=== PATIENT | male | born 2000 | race Caucasian/White ===

== ENCOUNTER 2019-08-12 01:23 | Emergency (ER) | payer SELFPAY ==
[2019-08-12 01:36] VITALS: BP 143/88; PULSE 81; TEMP 98.6; BMI 36.5
[2019-08-12] MEDS ORDERED: DEXAMETHASONE 4 MG TABLET (FP) PO ONE (01:45)
--- NOTE | 2019-08-12 01:47 | PDOC ---
History of Present Illness - General Chief Complaint: Respiratory Stated Complaint: RESPIRATORY PROBLEM Time Seen by Provider: 08/12/19 01:40 History Source: Patient Exam Limitations: No Limitations - History of Present Illness Initial Comments: Gunner is a 19 yo M w no sig pmh who presents to the [facility] after he experienced an episode which he describes as his throat closing up while he was in the shower. The patient was well the entire day until he went into the shower at 1 am. He describes a very warm shower and about 1 minute into the shower he felt as if his throat closed up, he could not breath, could not inhale and nothing could come in or out of his throat or lungs. The episode self resolved after 1 minute. The patient ran out of his shower and went next door to his [place] room who said he should come to the ER to be evaluated and make sure everything is okay. Here in the ER the patient is asymptomatic and has no complaints just wants to know what happened. Denies taking any meds including RAFAEL/ARBs. Only medication he occasionally takes is ibuprofen. No personal or family history of tongue/mouth/throat swelling. Denies recent fevers, chills, infections. Denies SOB, chest pain, headache, blurry vision, neck pain. Denies tongue/lip/throat swelling. PCP: None PSH: None reported Allergies: NKA, NKDA Social Hx: Recreational alcohol drinker. Denies cigarettes or other substance abuse. Past History - Medical History Allergies/Adverse Reactions: Allergies Allergy/AdvReac Type Severity Reaction Status Date / Time No Known Allergies Allergy Unverified 08/12/19 01:36 COPD: No - Psycho-Social/Smoking History Smoking History: Never smoked Have you smoked in the past 12 months: No Information on smoking cessation initiated: No - Substance Abuse Hx (Audit-C & DAST Scrn) How often the patient has a drink containing alcohol: Never Score: In Men: 4 or > Positive; In Women: 3 or > Positive: 0 Screen Result (Pos requires Nsg. Audit-10AR): Negative In the last yr the pt used illegal drug/Rx for NonMed reason: No Score: Yes response is considered Positive: 0 Screen Result (Positive result requires Nsg. DAST-10): Negative Review of Systems - Review of Systems Able to Perform ROS?: Yes Comments:: CONSTITUTIONAL: Absent: fever, no chills, no fatigue HEENT: Absent: rhinorrhea, nasal congestion, throat pain, throat swelling, difficulty swallowing, mouth swelling, ear pain, eye pain, visual Changes CARDIOVASCULAR: Absent: chest pain, no palpitations RESPIRATORY: Absent: cough, no SOB GI: Absent: abdominal pain, no nausea, no vomiting, no constipation, no diarrhea GENITOURINARY: Absent: dysuria, no frequency, no hematuria MUSKULOSKELETAL: Absent: back pain, no arthralgia, no myalgia SKIN: Absent: rash NEURO: Absent: headache *Physical Exam - Vital Signs Last Vital Signs Temp Pulse Resp BP Pulse Ox 98.6 F 81 16 143/88 99 08/12/19 01:34 08/12/19 01:08/12/19 01:08/12/19 01:08/12/19 01:34 - Physical Exam GENERAL: Well developed, well nourished. Awake and alert. No acute distress. HEENT: There is no oropharyngeal swelling. Normocephalic, atraumatic. PERRLA, EOMI. No conjunctival pallor. Sclera are non-icteric. Moist mucous membranes. Oropharynx is clear. NECK: Supple. Full ROM. CARDIOVASCULAR: Regular rate and rhythm. No murmurs, rubs, or gallops. Distal pulses are 2+ and symmetric. PULMONARY: No evidence of respiratory distress. Lungs clear to auscultation bilaterally. No wheezing, rales or rhonchi. ABDOMINAL: Soft. Non-tender. Non-distended. No rebound or guarding. No organomegaly. Normoactive bowel sounds. MUSCULOSKELETAL Normal range of motion at all joints. No bony deformities or tenderness. No CVA tenderness. EXTREMITIES: No cyanosis. No clubbing. No edema. No calf tenderness. SKIN: Warm and dry. Normal capillary refill. No rashes. No jaundice. NEUROLOGICAL: Alert, awake, appropriate. Cranial nerves 2-12 intact. No deficits to light touch in face, upper extremities and lower extremities. No motor deficits in the in face, upper extremities and lower extremities. Normal speech. Gait is normal without ataxia. PSYCHIATRIC: Cooperative. Good eye contact. Appropriate mood and affect. Medical Decision Making - Medical Decision Making Gunner is a 19 yo M w no sig pmh who presents to the [facility] after he experienced an episode which he describes as his throat closing up while he was in the shower. The patient was well the entire day until he went into the shower at 1 am. He describes a very warm shower and about 1 minute into the shower he felt as if his throat closed up, he could not breath, could not inhale and nothing could come in or out of his throat or lungs. The episode self resolved after 1 minute. The patient ran out of his shower and went next door to his [place] room who said he should come to the ER to be evaluated and make sure everything is okay. Here in the ER the patient is asymptomatic and has no complaints just wants to know what happened. Denies taking any meds including RAFAEL/ARBs. Only medication he occasionally takes is ibuprofen. No personal or family history of tongue/mouth/throat swelling. Denies recent fevers, chills, infections. Denies SOB, chest pain, headache, blurry vision, neck pain. Denies tongue/lip/throat swelling. Vital Signs Temp Pulse Resp BP Pulse Ox 98.6 F 81 16 143/88 99 08/12/19 01:34 08/12/19 01:34 08/12/19 01:34 08/12/19 01:34 08/12/19 01:34 DDx IBNLT: uvulitis, laryngospasm, allergic reaction Plan: Dexamethasone, DC with PCP referall MDM: Patient appears great in the ER, has no oropharyngeal swelling, has been asymptomatic for the past hour. I suspect this might have been an episode of laryngospasm. The patient appears clinically sober, is A&O x4, and appears to be capable and have capacity to make reasonable decisions. The patient states they are currently in the emergency department, knows who the president is, states the correct time, correct day, and correct month. The patient is ambulatory in ER and has walked around the nursing station multiple times with a straight gait, and is not ataxic. Tolerating PO well, ate a sandwich and drank juice. Denies having any SI or HI. Patient states will not be driving home. I discussed the physical exam findings, ancillary test results and final diagnoses with the patient. I answered all of the patient's questions. The patient was satisfied with the care received and felt comfortable with the discharge plan and treatment plan. The patient will call their primary care physician within 24 hours to arrange follow-up and will return to the Emergency Department with any new, persistent or worsening symptoms. Please note, this clinical encounter is taking place during a federal and state health care emergency attributable to the novel [place] Virus pandemic. The [place] of the Department of Health and Human Services has declared, pursuant to the Public Health Service Act 319F-3 (42 U.S.C. 247d-6d), that a covered persons activities related to medical countermeasures against COVID-19 will be immune from liability under Federal and State law. Discharge - Discharge Information Problems reviewed: Yes Clinical Impression/Diagnosis: Laryngospasm Condition: Improved Disposition: HOME - Admission No - Follow up/Referral Referrals: [facility] [place] [facility] at [place] [Provider Group] - Patient Discharge Instructions Patient Printed Discharge Instructions: DI for Acute Bronchitis, DI for Shortness of Breath Additional Instructions: You must return to the Emergency Department with any new complaints, if your symptoms persist and do not improve or if you develop any other new or worsening concerns. As discussed, please call to follow up with your Primary Care physician in 1-2 days to discuss what happened to you in the emergency room, and make sure you are being looked after and taken care of. Your emergency room visit is not complete without this follow up appointment. Thank you for coming to the [facility]. We hope you feel better soon! Print Language: YAKUT - Post Discharge Activity
[2019-08-12] MEDS ORDERED: DEXAMETHASONE SOD PHOSPHATE 10 MG/1 ML VIAL ONE (01:50)
--- NOTE | 2019-08-12 01:59 | PDOC ---
Attending Attestation - Resident Resident Name: Shailesh Cheung - ED Attending Attestation I have performed the following: I have examined & evaluated the patient, The case was reviewed & discussed with the resident, I agree w/resident's findings & plan - HPI HPI: 08/12/19 01:57 see resident hpi - Physicial Exam PE: 08/12/19 01:57 see resident exam - Medical Decision Making 08/12/19 01:57 19-year-old male with an episode of throat closing sensation while taking a hot shower which rapidly resolved when he returned to normal temperature room Exam is within normal limits History likely consistent with laryngeal spasm Will give 1 dose of oral steroids and DC with outpatient ENT follow-up Discharge - Discharge Information Problems reviewed: Yes Clinical Impression/Diagnosis: Laryngospasm Disposition: HOME - Follow up/Referral Referrals: [facility] [place] [facility] at [place] [Provider Group] - Patient Discharge Instructions Patient Printed Discharge Instructions: DI for Acute Bronchitis, DI for Shortness of Breath Additional Instructions: You must return to the Emergency Department with any new complaints, if your symptoms persist and do not improve or if you develop any other new or worsening concerns. As discussed, please call to follow up with your Primary Care physician in 1-2 days to discuss what happened to you in the emergency room, and make sure you are being looked after and taken care of. Your emergency room visit is not complete without this follow up appointment. Thank you for coming to the [facility]. We hope you feel better soon! Print Language: ITALIAN - Post Discharge Activity
== END 2019-08-12 01:59 | disposition home or self-care (01) ==
LOC: JER 01:23
DX: J38.5 Laryngeal spasm (principal)
CPT/HCPCS: 99283-25